=== PATIENT | male | born 1990 | race Two or more races ===

== ENCOUNTER 2019-10-10 10:34 | Emergency (ER) | payer OTHER ==
[~2019-10-10] VITALS: Ht 167.6 cm; Wt 104.3 kg
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
== END 2019-10-10 13:02 | disposition home or self-care (01) ==
LOC: ER 10:34
DX: S06.0X0A Concussion without loss of consciousness, initial encounter (principal); R42 Dizziness and giddiness; M25.512 Pain in left shoulder; V43.52XA Car driver injured in collision with other type car in traffic accident, initial encounter; Y92.488 Other paved roadways as the place of occurrence of the external cause
CPT/HCPCS: 70450; 71046; 72125; 99283